=== PATIENT | female | born 1955 ===

== ENCOUNTER 2017-03-31 06:49 | Day surgery (SDC) | payer MEDICARE, MEDICAID ==
[2017-03-26 12:11] VITALS: BMI 23.6
[2017-03-31] MEDS ORDERED: Bacitracin Ointment 30 GM TUBE ONE (08:48)
[2017-03-31] MEDS ORDERED: Lidocaine 1% w Epi 1:100,000 Inj ONE (08:48)
[2017-03-31] MEDS ORDERED: Propofol 10 mg/ml Inj (20 ML) ONE (09:04)
[2017-03-31] MEDS ORDERED: Midazolam 2 MG/2 ML VIAL ONE (09:04)
[2017-03-31] MEDS ORDERED: Lidocaine 1% Inj (20ml) ONE (09:05)
[2017-03-31] MEDS ORDERED: Sodium Bicarbonate (8.4%) 50 Meq Syringe ONE (09:18)
[2017-03-31] MEDS ORDERED: HYDROmorphone 0.5 mg/0.5 ml ISec IVP PRN (10:32)
[2017-03-31] MEDS ORDERED: HYDROmorphone 0.5 mg/0.5 ml ISec ONE ×2 (10:54→11:12)
[2017-03-31] MEDS ORDERED: HYDROmorphone 0.5 mg/0.5 ml ISec IVP ONE ×2 (10:55→11:15)
[2017-03-31 11:26] VITALS: PULSE 88; O2SAT 97
--- NOTE | 2017-03-31 11:45 | OP ---
PROCEDURE DATE: 03/31/2017 TYPE OF SURGERY: 1. Removal of spinal cord stimulator, Octrode lead. 2. Removal of St[employer] Ras internal pulse generator. 3. Fluoroscopic guidance. PREOPERATIVE DIAGNOSES: 1. Post-laminectomy syndrome. 2. Lumbosacral radiculopathy. 3. Failed spinal cord stimulator system. POSTOPERATIVE DIAGNOSES: 1. Post-laminectomy syndrome. 2. Lumbosacral radiculopathy. 3. Failed spinal cord stimulator system. SURGEON: Christos Foster MD. TYPE OF ANESTHESIA: Local anesthesia and conscious sedation. ANESTHESIA ADMINISTERED BY: Jenn Ash MD. ESTIMATED BLOOD LOSS: Approximately 2 to 5 mL. DESCRIPTION OF PROCEDURE: The patient signed an informed consent form in the preop area and after all risks and complications were explained and all questions were answered. An IV was started in the preop area and IV fluid administration continued throughout the procedure. Blood pressure, heart rate, pulse oximetry and cardiac monitoring were monitored throughout the procedure. Intravenous sedation appropriate to the procedure was administered by the anesthesiologist and it was accurately reflected in the patient's chart. 600 mg of clindamycin was administered preoperatively. The patient was prepped and draped in a sterile fashion in the prone position. The patient's spine was surveyed under fluoroscopic visualization and appropriate anatomical landmarks were identified. Removal of dual Octrode spinal cord stimulator lead: After the spine was surveyed under fluoroscopic visualization, it appeared that the patient has one Octrode percutaneous lead and one S lead. At this point, a midline incision was made in the lumbar area above the anchoring suture after appropriate local anesthesia using 1% lidocaine with epinephrine and mixed with sodium bicarbonate as above for using 25-gauge 1.5 inch needle followed by 3 cm incision was made using 15 blade. The subcutaneous tissue was dissected and scar tissue around the anchoring of the lead was dissected carefully and the leads were retrieved and pulled out of epidural space. Removal of St[employer] Ras internal pulse generator: Under direct fluoroscopic visualization, a 6 cm horizontal incision was made on right flank area above the internal pulse generator and after appropriate local anesthesia with 1% lidocaine with epinephrine using 15 blade, subcutaneous tissue was dissected down to the internal pulse generator and internal pulse generator was retrieved and the spinal cord stimulator lead was disconnected from the internal pulse generator and then we went back to midline incision and the leads were pulled out to the midline incision and all the leads were taken out making sure that nothing was left under direct fluoroscopic visualization. At this point, both midline incision and the right flank incision were closed using 2-0 Vicryl for subcutaneous tissue and skin glue Dermabond for skin. Both incisions were covered with sterile dressing. The patient tolerated the procedure very well, was in good condition at the conclusion of the procedure. COMPLICATIONS: None. DISPOSITION: 1. The patient was discharged to recovery room in a good condition. 2. Discharge instructions provided and explained. 3. Call for any questions or concerns. 4. Apply ice pack to the dressing site. 5. The patient to keep the dressing dry and clean until seen in the office in 1 week. Christos Foster MD
[2017-03-31 11:54] VITALS: BP 127/68; RESP 20; TEMP 98
--- NOTE | 2017-03-31 14:22 | RAD ---
PROCEDURE: HISTORY: Fluoroscopy up to 1 hour for removal of spinal stimulator COMPARISON: None TECHNIQUE: Total fluoroscopic time utilized during the procedure: 16.4 seconds. Total dose 3.19 mGy cm squared FINDINGS: Submitted images from the current procedure: 4 Please refer to the physician's notes performing the procedure. IMPRESSION: Less than 1 hour fluoroscopic time utilized during performance of the procedure
== END 2017-03-31 12:30 | disposition home or self-care (01) ==
LOC: SDS 06:49
PROVIDERS: ATTEND Specialist
DX: T85.113A Breakdown (mechanical) of implanted electronic neurostimulator, generator, initial encounter (principal); M96.1 Postlaminectomy syndrome, not elsewhere classified; M54.17 Radiculopathy, lumbosacral region; Y83.8 Other surgical procedures as the cause of abnormal reaction of the patient, or of later complication, without mention of misadventure at the time of the procedure
CPT/HCPCS: 63661; 63688; J1170; J2250; J2405; J2704; J2765; J3010; J7120